=== PATIENT | male | born 1995 | race Two or more races ===

== ENCOUNTER 2024-10-15 19:52 | Inpatient (IN) | payer OTHER ==
[2024-10-15 20:26] VITALS: BMI 32.2
[2024-10-15] MEDS ORDERED: POLYETHYLENE GLYCOL (HEALTHYLAX) 3350 17 GM PACKET PO PRN (20:39)
[2024-10-15] MEDS ORDERED: IBUPROFEN 400 MG TABLET (FP) PO PRN (20:39)
[2024-10-15] MEDS ORDERED: NICOTINE POLACRILEX 2 MG LOZENGE BC PRN (20:39)
[2024-10-15] MEDS ORDERED: BENZONATATE 200 MG CAPSULE PO PRN (20:39)
[2024-10-15] MEDS ORDERED: NALOXONE (NARCAN) HCL 4 MG/0.1 ML SPRAY NS PRN (20:39)
[2024-10-15] MEDS ORDERED: ONDANSETRON *ODT* 4 MG TABLET SL PRN (20:39)
[2024-10-15] MEDS ORDERED: MAG HYDROX/AL HYDROX/SIMETH 30 ML UNIT-DOSE CUP PO PRN (20:39)
[2024-10-15] MEDS ORDERED: NICOTINE POLACRILEX 2 MG GUM BUC PRN (20:39)
[2024-10-15] MEDS ORDERED: DICYCLOMINE HCL 10 MG CAPSULE PO PRN (20:39)
[2024-10-15] MEDS ORDERED: METHOCARBAMOL 500 MG TABLET PO PRN (20:39)
[2024-10-15] MEDS ORDERED: LOPERAMIDE HCL 2 MG CAPSULE PO PRN (20:39)
[2024-10-15] MEDS ORDERED: BISMUTH SUBSALICYLATE 524 MG/30 ML PO PRN (20:39)
[2024-10-15] MEDS ORDERED: MAGNESIUM HYDROX 2400MG/30ML ORAL SUSPENSION 30 ML CUP PO PRN (20:39)
[2024-10-16] MEDS: MELATONIN 5 MG TABLETS PO SCH (01:40)
[2024-10-16] MEDS: THIAMINE 100 MG TABLET PO SCH (01:41)
[2024-10-16] MEDS: PRENATAL VITAMINS W/ FOLIC ACID TABLET (FP) PO SCH (10:36)
[2024-10-16] MEDS: BENZOCAINE/MENTHOL (CHLORASEPTIC ) LOZENGE MM PRN (10:38)
[2024-10-16 11:20] LABS: HEMATOCRIT 39.8 % (35.4-49); HEMOGLOBIN 13.5 GM/dL (11.7-16.9); MCH 29.7 pg (25.7-33.7); MCHC 33.8 g/dl (32.0-35.9); MEAN CELL VOLUME 87.8 fl (80-96); MEAN PLT VOLUME 7.3 fl (7.5-11.1); PLATELET COUNT 537 10^3/uL (134-434); RBC 4.53 M/mm3 (4.00-5.60); WHITE BLOOD COUNT 6.6 K/mm3 (4.0-10.0)
[2024-10-16 11:26] LABS: CHLORIDE 109 mmol/L (98-107); POTASSIUM 4.3 mmol/L (3.5-5.1); SODIUM 140 mmol/L (136-145)
[2024-10-16 11:29] LABS: CALCIUM 8.5 mg/dL (8.5-10.1)
[2024-10-16 11:30] LABS: ALBUMIN 3.2 g/dl (3.4-5.0); ANION GAP 6 mmol/L (4-13); BLOOD UREA NITROGEN 13.5 mg/dL (7-18); CO2 25 mmol/L (21-32); GLUCOSE,RANDOM 96 mg/dL (74-106)
[2024-10-16 11:33] LABS: CREATININE 0.8 mg/dL (0.55-1.3); SGOT/AST 21 U/L (15-37); SGPT/ALT 40 U/L (13-61)
[2024-10-16 11:35] LABS: BILIRUBIN,TOTAL 0.2 mg/dL (0.2-1); TOT PROT 6.1 g/dl (6.4-8.2)
[2024-10-16 11:36] LABS: ALK PHOS 94 U/L (45-117)
[2024-10-16] MEDS ORDERED: diazePAM 5 MG TABLET PO PRN (15:40)
[2024-10-16] MEDS: diazePAM 5 MG TABLET PO SCH (17:24)
[2024-10-16] MEDS: ACETAMINOPHEN 325 MG TABLET (FP) PO PRN (20:28)
[2024-10-17 11:11] LABS: BASO % 0.7 % (0-2.0); EOS % 1.7 % (0-4.5); HEMATOCRIT 40.6 % (35.4-49); HEMOGLOBIN 13.8 GM/dL (11.7-16.9); LYMPH % 33.1 % (8-40); MCH 29.6 pg (25.7-33.7); MEAN CELL VOLUME 87.2 fl (80-96); MEAN PLT VOLUME 6.9 fl (7.5-11.1); MONO % 8.2 % (3.8-10.2); NEUT % 56.3 % (42.8-82.8); PLATELET COUNT 539 10^3/uL (134-434); POTASSIUM 4.4 mmol/L (3.5-5.1); RBC 4.66 M/mm3 (4.00-5.60); WHITE BLOOD COUNT 4.7 K/mm3 (4.0-10.0)
[2024-10-17 11:16] LABS: ALBUMIN 3.2 g/dl (3.4-5.0); BLOOD UREA NITROGEN 11.1 mg/dL (7-18); CALCIUM 8.8 mg/dL (8.5-10.1)
[2024-10-17 11:20] LABS: BILIRUBIN,TOTAL 0.2 mg/dL (0.2-1); CREATININE 0.7 mg/dL (0.55-1.3); TOT PROT 6.5 g/dl (6.4-8.2)
[2024-10-17] MEDS: guaiFENesin 600 MG TABLET.ER (FP) PO PRN (17:24)
[2024-10-18] MEDS: diazePAM 5 MG TABLET PO SCH (06:13)
[2024-10-18] MEDS: AMOX TR/POT CLAV 875MG/125MG TABLETS (FP) PO ONE (11:09)
[2024-10-18] MEDS: IBUPROFEN 600 MG TABLET (FP) PO PRN (14:29)
[2024-10-18] MEDS: AMOX TR/POT CLAV 875MG/125MG TABLETS (FP) PO SCH (17:13)
[2024-10-18] MEDS: hydrOXYzine PAMOATE 25 MG CAPSULE (FP) PO PRN (17:13)
[2024-10-19] MEDS: diazePAM 5 MG TABLET PO SCH (05:48)
[2024-10-19 06:03] VITALS: RESP 16
[2024-10-19 08:47] VITALS: BP 124/74; PULSE 95; TEMP 98.4
[2024-10-20] MEDS ORDERED: diazePAM 5 MG TABLET PO ONE (06:00)
== END 2024-10-19 09:02 | disposition home or self-care (01) | DRG 774 ==
LOC: YASAS 19:52 → Y3N 23:01 → Y6N 10-17 11:49 → Y3N 10-17 15:35
PROVIDERS: ADMIT Allergy & Immunology; ATTEND Allergy & Immunology
PROC: HZ2ZZZZ Detoxification Services for Substance Abuse Treatment (ICD-10-PCS; principal; 2024-10-15)
DX: F10.230 Alcohol dependence with withdrawal, uncomplicated (principal); F14.20 Cocaine dependence, uncomplicated; F17.210 Nicotine dependence, cigarettes, uncomplicated; J02.9 Acute pharyngitis, unspecified
CPT/HCPCS: 36415; 80053; 80305; 80307; 85025; 85027; 86780; 93005; 93010